=== PATIENT | female | born 1965 | race Caucasian/White ===

== ENCOUNTER 2016-10-17 09:24 | Emergency (ER) | payer BC ==
[2016-10-17 09:38] VITALS: BP 117/74
--- NOTE | 2016-10-17 10:20 | RAD ---
HISTORY: Tender first metacarpal, trauma COMPARISONS: None VIEWS: 4, Frontal, lateral, and oblique views of the left hand FINDINGS: BONE DENSITY: Normal. BONES: There is no displaced fracture. JOINTS: There is moderate to advanced osteoarthritis of the first CMC joint. There is mild osteoarthritis of the interphalangeal joints. ALIGNMENT: There is no dislocation. SOFT TISSUES: Unremarkable. OTHER FINDINGS: None. IMPRESSION: OSTEOARTHRITIS. NO ACUTE OSSEOUS INJURY. IF SYMPTOMS PERSIST, RECOMMEND REPEAT IMAGING.
--- NOTE | 2016-10-17 10:58 | UC ---
Upper Extremity HPI - HPI Summary HPI Summary: PT HAD A TUMBLE WHEN WALKING A LARGE DOG LAST NIGHT AROUND 9PM. NOT SURE EXACTLY WHAT HAPPENED. NO PAIN IMEDIATELY AFTER THE FALL. HOWEVER PT WOKE THIS AM WITH PAIN AND TENDERNESS OVER THE LEFT 1ST METACARPAL AND RADIAL ASPECT OF THE WRIST. - History of Current Complaint Chief Complaint: UCUpperExtremity Stated Complaint: HAND INJURY Time Seen by Provider: 10/17/16 09:48 Hx Obtained From: Patient ?: No Onset/Duration: Sudden Onset, Lasting Hours, Still Present, Worse Since - THIS AM Severity Initially: Moderate Severity Currently: Moderate Pain Intensity: 8 Pain Scale Used: 0-10 Numeric Location Of Pain: Is Discrete @ Character: Sharp, Dull Aggravating Factor(s): Movement, Lifting, Flexion, Extension, Internal/External Rotation Alleviating Factor(s): Rest Associated Signs And Symptoms: Positive: Negative Related History: Dominant Hand Right - Allergies/Home Medications Allergies/Adverse Reactions: Allergies Allergy/AdvReac Type Severity Reaction Status Date / Time Bacitracin [From Neosporin] Allergy Anaphylatic Verified 07/28/15 19:21 Shock Neomycin [From Neosporin] Allergy Anaphylatic Verified 07/28/15 19:21 Shock Polymyxin B [From Neosporin] Allergy Anaphylatic Verified 07/28/15 19:21 Shock TOPICAL ANTIBIOTICS* Allergy Severe Anaphylatic Uncoded 07/28/15 19:21 Shock Home Medications: Home Medications Cholesterol Med 1 tab PO DAILY 10/17/16 [History] PMH/Surg Hx/FS Hx/Imm Hx - Additional Past Medical History Additional PMH: BACK PAIN Other Endocrine History: NEG: DM Other Cardiovascular History: NEG: HTN Psychological History: Anxiety - Surgical History Surgical History: Yes Surgery Procedure, Year, and Place: - Family History Known Family History: Positive: None - Social History Alcohol Use: Occasionally Substance Use Type: Prescribed Smoking Status (MU): Heavy Every Day Tobacco Smoker Type: Cigarettes Amount Used/How Often: 1/2 ppd Length of Time of Smoking/Using Tobacco: 40 years Have You Smoked in the Last Year: Yes Cessation Counseling: Patient Advised to Stop - Immunization History Most Recent Influenza Vaccination: 2014/2015 Most Recent Tetanus Shot: unknown Review of Systems Constitutional: Negative Skin: Negative Eyes: Negative ENT: Negative Respiratory: Negative Cardiovascular: Negative Gastrointestinal: Negative Musculoskeletal: Other: - SEE HPI Neurological: Negative All Other Systems Reviewed And Are Negative: Yes Physical Exam Triage Information Reviewed: Yes Appearance: Well-Appearing, No Pain Distress, Well-Nourished Vital Signs: Initial Vital Signs Temp 98.4 F 10/17/16 09:28 Pulse 83 10/17/16 09:28 Resp 16 10/17/16 09:28 BP 117/74 10/17/16 09:28 Pulse Ox 100 10/17/16 09:28 Vital Signs Reviewed: Yes Eyes: Positive: Conjunctiva Clear. Negative: Discharge ENT: Positive: Hearing grossly normal. Negative: Muffled/hoarse voice Neck: Positive: Supple Respiratory: Positive: Lungs clear, Normal breath sounds, No respiratory distress, No accessory muscle use Cardiovascular: Positive: RRR, No Murmur Musculoskeletal: Positive: ROM Limited @ - FLEX/EXT, GRIPPING, Other: - TENDER TO PALPATION OF 1ST METACARPAL AND SNUFF BOX Neurological: Positive: Alert, Muscle Tone Normal Psychological: Positive: Age Appropriate Behavior Skin Exam: Normal Upper Extremity Course/Dx - Differential Dx/Diagnosis Differential Diagnosis/HQI/PQRI: Arthritis, Contusion, Fracture (Closed), Strain , Sprain Provider Diagnoses: THUMB SPRAIN, R/O SCAPHOID FX Discharge - Discharge Plan Condition: Stable Disposition: HOME Patient Education Materials: Suspected Fracture (ED), Wrist Sprain (ED), Splint Care (ED) Referrals: Pranav Ashby MD [Medical Doctor] - (FOLLOW UP IN 5-7 DAYS OR PER ORTHO) Birgit Hurley NP [Primary Care Provider] - If Needed Additional Instructions: Your history and exam is suspicous for possible occult fracture of the scaphoid bone. This is a fracture that can have a bad outcome if not properly immobilized. So, we will treat this as a fracture until proven otherwise. That means that you must wear the splint 24 hours a day until the ortho provider tells you otherwise. It will take 5-7 days to establish whether or not your bone is fractured.
== END 2016-10-17 10:40 | disposition home or self-care (01) ==
LOC: UCEAST 09:24
DX: S63.682A Other sprain of left thumb, initial encounter (principal); M18.12 Unilateral primary osteoarthritis of first carpometacarpal joint, left hand; W18.30XA Fall on same level, unspecified, initial encounter; Y92.9 Unspecified place or not applicable; F17.210 Nicotine dependence, cigarettes, uncomplicated; Z88.1 Allergy status to other antibiotic agents
CPT/HCPCS: 99212; G0463

== ENCOUNTER 2018-04-12 12:06 | Day surgery (SDC) | payer BC ==
[~2018-04-12 12:06] MED LIST: Buffered Lidocaine 1% SYRIN* 1 ML/SYRINGE INTRADERM ONE; Lactated Ringers 1000 ML Bag* 1,000 ML IV SCH; Sodium Citrate/Citric Acid* 15 ML UDC PO ONE
[2018-04-12] MEDS ORDERED: ROPIVACAINE 5 MG/ML 30 ML BTL (0.5%) ONE (12:31)
[2018-04-12] MEDS ORDERED: ceFAZolin 2 GM PREMIX in ORs 2 GM/50 ML BAG IVPB ONE (12:35)
[2018-04-12] MEDS ORDERED: Sodium Citrate/Citric Acid* 15 ML UDC ONE (12:35)
[2018-04-12] MEDS ORDERED: Midazolam* 1 MG/ML 2 ML VIAL (2 MG) ONE (13:19)
[2018-04-12] MEDS ORDERED: fentaNYL* 50 MCG/ML 2 ML VIAL (100 MCG VIAL) ONE ×4 (13:19→15:30)
[2018-04-12] MEDS ORDERED: Lidocaine 2% PF * 5 ML VIAL ONE (13:46)
[2018-04-12] MEDS ORDERED: Propofol* 10 MG/ML 20 ML BTL ONE (13:46)
[2018-04-12] MEDS ORDERED: Ketorolac INJ* 30 MG/ML 1 ML VIAL ONE (14:14)
[2018-04-12] MEDS ORDERED: Dexamethasone IV* 4 MG/ML 1 ML (4 MG) ONE (14:14)
[2018-04-12] MEDS ORDERED: Naloxone* 0.4 MG/ML 1 ML VIAL IV PRN (14:37)
[2018-04-12] MEDS ORDERED: Ondansetron INJ* 2 MG/ML VIAL IV PRN (14:37)
[2018-04-12] MEDS ORDERED: HYDROcodone/ACETAMIN 5-325 MG* 1 TAB ONE (15:21)
[2018-04-12] MEDS: fentaNYL* 50 MCG/ML 2 ML VIAL (100 MCG VIAL) IV PRN ×4 (15:23→16:12)
[2018-04-12 16:45] VITALS: BP 136/82
--- NOTE | 2018-04-12 21:13 | OP ---
DATE OF OPERATION: 04/12/18 - [facility] DATE OF : 65 SURGEON: Keith Boswell MD DIRECTOR [facility] NURSING: RICK Mata. An visitor services information assistant was needed for the procedure to aid in positioning of the arm and retraction. ANESTHESIOLOGIST: Dr. Nunes. ANESTHESIA: General. PRE-OP DIAGNOSIS: Left stage III basal joint arthritis. POST-OP DIAGNOSES: Left stage III basal joint arthritis. OPERATIVE PROCEDURE: 1. Left thumb carpometacarpal arthroplasty with trapeziectomy. 2. Distally based flexor carpi radialis tendon transfer for thumb suspension and tendon interposition. INDICATIONS: Mae has the aforementioned basal joint arthritis. We talked about nonoperative treatments as well as the risks and benefits of the surgery and expected recovery with surgery. She had wanted to proceed with surgical intervention. ESTIMATED BLOOD LOSS: 5 mL. COMPLICATIONS: None. FINDINGS: See above and below. DESCRIPTION OF PROCEDURE: Mae was seen in the preoperative holding area. The correct site, side, and procedure were identified. We came back to the operating room where the arm was prepped and draped in the usual fashion and a time-out was performed. The arm was exsanguinated with the Esmarch and the tourniquet was inflated to 250 mmHg. I made a 2 to 3 cm incision over the dorsoradial thumb base over the CMC joint. Dissection was carried down. The traversing sensory nerves were preserved. The radial artery was mobilized and retracted. A subperiosteal and capsular flaps were raised off the trapezium. I then placed a Steinmann pin in the trapezium and used the McGlamry elevator to excise the trapezium en bloc. This was handed off as a specimen, it was noted to be frankly arthritic at the CMC joint. The FCR tendon was preserved in the base of the wound. The scaphotrapezoid joint was then inspected and looked healthy. I then made a bone tunnel from the dorsoradial aspect of the thumb metacarpal base extending out the volar ulnar articular surface near the insertion of the FCR tendon. The wound was irrigated out and we turned our attention to the tendon transfer. I made a 1-cm transverse incision just proximal to the wrist flexion crease. The tendon sheath was opened up and the FCR tendon was delivered out of the wound and split longitudinally with a 15 blade and a 26-gauge wire was passed into the tendon split. I then made 2 more transverse incisions, each about 7 cm proximal to the last. The sheath was released along the entirety of the FCR tendon. I then passed a Hilaria clamp from the middle wound into the distal wound and pulled the wire into the middle wound and then I did the same thing pulling the wire into the proximal wound and releasing half the tendon at the musculotendinous junction. The muscular remnants were cleaned off the end of the tendon and the end of the tendon was secured with 3-0 Ethibond suture to prevent splitting and fraying. The two 26-gauge wires were then used to shuttle the free end of the tendon down into the thumb base wound. The tendon split was completed all the way to the base of the second metacarpal. I then passed the free end of the tendon through the bone tunnel back around the intact limb of the FCR tendon and maximum tension was set as the tendon transfer was secured with three [id number] 3-0 Ethibond sutures. The first sewing all 3 limbs of the tendon transfer together, the second two sewing intact limb to intact limb. The remainder of the tendon tail was rolled up as a ball and secured with a 3-0 Ethibond suture and this was docked as an interposition between the base of the thumb and the distal pole of the scaphoid. The thumb was nicely suspended. The wound was irrigated out. The capsule was closed with 3-0 Vicryl suture. The skin was closed with 4-0 nylon suture. A 0.5% ropivacaine was infiltrated out on the operative area. The wounds were dressed with Xeroform, 4x4s, sterile Webril and then a thumb spica splint with DIP joint free was applied. Tourniquet was deflated and the hand pinked up immediately. She was then taken to the recovery room in stable condition. [id number]/[facility] #: [id number] LORRAINE
== END 2018-04-12 16:44 | disposition home or self-care (01) ==
LOC: OR 12:06
PROVIDERS: ATTEND Orthopaedic Surgery Hand Surgery
DX: M18.12 Unilateral primary osteoarthritis of first carpometacarpal joint, left hand (principal); F41.8 Other specified anxiety disorders; Z87.891 Personal history of nicotine dependence; E78.5 Hyperlipidemia, unspecified; M19.90 Unspecified osteoarthritis, unspecified site
CPT/HCPCS: 88304; 88311; A9270-GY; C1776; J0690; J1100; J1885; J2250; J2704; J2795; J3010

== ENCOUNTER 2018-08-17 07:02 | Emergency (ER) | payer BC ==
--- OUTSIDE RECORDS SUMMARY | 2018-08-17 07:09 | XMS REPORT | Continuity of Care Document ---
:1965 External Reference #:[id number] Author Name Mark Diezbryanlauratim Care Team Providers Name Role Phone Mehdi Ramirez MD Primary Care Physician Unavailable Payers Date Identification Numbers Payment Provider Subscriber Policy Number: [id number] Tami Esposito PayID: [id number] [address] [address] [place] [address] Effective: 2013 Policy Number: [id number] Tami Esposito Expires: 2018 PayID: [id number] [address] [address] [place] [address] Problems Description No Active Problems Family History Date Family Member(s) Observation Comments General Cancer General No Current Problems General Thyroid Disease General Diabetes Father due to Suicide () Mother Non hodkins lymphoma Mother Diabetes Mother hashimotos Mother Breast Cancer Siblings 3 sister-thyroid disease Social History Type Date Description Comments Sex Unknown Marital Status Lives With Alone Lives With Alone Occupation [employer] Occupation [employer] Tobacco Use Start: Unknown Light tobacco smoker (10 or fewer cigarettes/day) ETOH Use Drinks 1 Alcoholic Beverage Per Day ETOH Use Drinks 1 Alcoholic Beverage Per Day Recreational Drug Use Denies Drug Use Tobacco Use Start: Unknown End: Patient is a former smoker Unknown Tobacco Use Start: Unknown End: Patient is a former smoker Unknown Smoking Status Reviewed: 07/27/18 Patient is a former smoker Exercise Type/Frequency Exercises rarely Exercise Type/Frequency Does not exercise Allergies, Adverse Reactions, Alerts Active Allergies Reaction Severity Comments Date Topical Antibiotics blister, puss 04/27/2014 Topical Antibiotics 05/18/2018 Levaquin myalgia 03/18/2015 Medications Active Medications SIG Qnty Indications Ordering Provider Date Mobic 1 tab by mouth 30tabs Cecilia Jude, 01/04/2018 15mg Tablets every day M.D. Aspirin Low Strength 1 by mouth every Qutaybeh S. 05/16/2014 81mg day Frantz Riojas Chewtabs Flexeril as needed Unknown Xanax by mouth three Unknown 0.5mg Tablets times a day as needed Valacyclovir Unknown Percocet 1 - 2 tabs by Unknown 5-325mg Tablets mouth every 4 - 6 hours as needed for pain. Valacyclovir HCL 1 by mouth every Unknown 500mg day Tablets History Medications Joiner 1 by mouth 30tabs Keith Boswell, 04/12/2018 - 5-325mg Tablets every 6 hours 04/20/2018 as needed Bactrim DS 1 tablet by 30tabs Iveth 03/18/2015 - 800-160mg mouth twice a JOHN Montoya 12/30/2017 Tablets day Levofloxacin 1 by mouth 30tabs S91.332A Keith Freedman, 03/16/2015 - 500mg every day M.D. 03/18/2015 Tablets Flagyl one tab twice 30tabs S91.332A Keith Freedman, 03/16/2015 - 500mg Tablets day M.D. 03/30/2018 Percocet as needed Unknown - 12/30/2017 Medications Administered in Office Medication SIG Qnty Indications Ordering Provider Date Technetium TC 99M Silvio Brandyn Cancino M.D., 05/11/2014 Tetrofosmin, Per Unit Dose [facility] [place] Up To 40 Millicuries Injection Technetium TC 99M Arsh Riojas, 05/11/2014 Tetrofosmin, Per Unit Dose M.D. Up To 40 Millicuries Injection Vital Signs Date Vital Result Comment 07/27/2018 8:00am Height 66.5 inches 5'6.50" Heart Rate 78 /min BP Systolic 112 mmHg BP Diastolic 70 mmHg Respiratory Rate 18 /min Body Temperature 98.1 F Pain Level 3 05/18/2018 8:43am Height 66.5 inches 5'6.50" Weight 165.00 lb Heart Rate 82 /min BP Systolic 118 mmHg BP Diastolic 82 mmHg Respiratory Rate 18 /min Body Temperature 97.6 F Pain Level 3 BMI (Body Mass Index) 26.2 kg/m2 04/20/2018 11:25am Height 66 inches 5'6" Weight 170.00 lb BP Systolic 120 mmHg BP Diastolic 80 mmHg Body Temperature 97.8 F Pain Level 3 BMI (Body Mass Index) 27.4 kg/m2 03/31/2018 8:55am Height 66 inches 5'6" Weight 170.00 lb Heart Rate 88 /min BP Systolic 122 mmHg BP Diastolic 78 mmHg Respiratory Rate 18 /min Body Temperature 97.4 F Pain Level 8 BMI (Body Mass Index) 27.4 kg/m2 12/31/2017 11:05am Height 66 inches 5'6" Weight 170.00 lb BP Systolic 122 mmHg BP Diastolic 84 mmHg Respiratory Rate 16 /min Body Temperature 97.2 F Pain Level 2 BMI (Body Mass Index) 27.4 kg/m2 03/27/2015 1:29pm Height 66 inches 5'6" Weight 175.00 lb Pain Level 0 BMI (Body Mass Index) 28.2 kg/m2 03/16/2015 10:23am Height 66 inches 5'6" Weight 175.00 lb Heart Rate 78 /min BP Systolic Sitting 131 mmHg BP Diastolic Sitting 81 mmHg Respiratory Rate 16 /min BMI (Body Mass Index) 28.2 kg/m2 06/01/2014 4:16pm Height 66 inches 5'6" Weight 178.50 lb w/ shoes Heart Rate 77 /min BP Systolic Sitting 118 mmHg Ra, reg cuff BP Diastolic Sitting 80 mmHg Ra, reg cuff BMI (Body Mass Index) 28.8 kg/m2 05/18/2014 3:33pm Height 66 inches 5'6" Weight 174.19 lb Heart Rate 60 /min BP Systolic 120 mmHg LA reg BP Diastolic 78 mmHg LA reg BMI (Body Mass Index) 28.1 kg/m2 Results Test Date Facility Test Result H/L Range Note Laboratory test 04/12/2018 [facility] Surgical SEE RESULT [address] [place] [address] [phone] Cath Panel 05/22/2014 [facility] Activated 31.5 seconds N 26.0 -36.[address] [place] [address] Thrombo Time [phone] CBC Auto Diff 05/22/2014 [facility] White Blood 6.7 10^3/uL N 4.8-10.[address] Count [place], [place] [id number] [phone] Red Blood Count 4.41 10^6/uL N 4.0-5.4 Hemoglobin 14.2 g/dL N 12.0-16.0 Hematocrit 42 % N 35-47 Mean Corpuscular Volume 95 fL N 80-97 Mean Corpuscular Hemoglobin 32 pg High 27-31 Mean Corpuscular HGB Conc 34 g/dL N 31-36 Red Cell Distribution Width 14 % N 10.5-15 Platelet Count 284 10^3/uL N 150-450 Mean Platelet Volume 8 um3 N 7.4-10.4 Abs Neutrophils 3.5 10^3/uL N 1.5-7.7 Abs Lymphocytes 2.5 10^3/uL N 1.0-4.8 Abs Monocytes 0.5 10^3/uL N 0-0.8 Abs Eosinophils 0.1 10^3/uL N 0-0.6 Abs Basophils 0 10^3/uL N 0-0.2 Abs Nucleated RBC 0 10^3/uL N Granulocyte % 52.3 % N 38-83 Lymphocyte % 37.8 % N 25-47 Monocyte % 7.6 % N 1-9 Eosinophil % 1.8 % N 0-6 Basophil % 0.5 % N 0-2 Nucleated Red Blood Cells % 0 N Basic Metabolic Panel 05/22/2014 [facility] Sodium 136 mmol/L N 133-145 [address] [place] [address] [phone] Potassium 3.9 mmol/L N 3.5-5.0 Chloride 104 mmol/L N 101-111 Co2 Carbon Dioxide 28 mmol/L N 22-32 Anion Gap 4 mmol/L N 2-11 Glucose 90 mg/dL N 70-100 Blood Urea Nitrogen 19 mg/dL N 6-24 Creatinine 0.70 mg/dL N 0.51-0.95 BUN/Creatinine Ratio 27.1 High 8-20 Calcium 9.1 mg/dL N 8.6-10.3 Egfr Non- 89.3 N >60 Egfr 114.9 N >60 2 Inr/Protime 05/22/2014 [facility] Inr 0.88 N 0.78-1.[address] [place] [address] [phone] Order 05/09/2014 [facility] Echocardiogram <pending> [address] [place] [address] [phone] 1 SEE RESULT BELOW Name: MARION ESPOSITO : [address]: Keith Boswell MD Acct: [id number] Unit: [id number] AGE: 52 Location: OR Re04/12/18 SEX: F Status: CAMMY GARCIA SPEC: [id number] TORIE: 04/12/18-[address] [facility] [address]: Keith Boswell MD REQ: [id number] RECD: 04/12/18 STATUS: SOUT _ ORDERED: Mirlande, LEVEL 3 FINAL DIAGNOSIS Trapezium, left, excision: -- Benign bone and cartilage with degenerative change. PRE-OPERATIVE DIAGNOSIS Left thumb carpometacarpal arthroplasty GROSS DESCRIPTION The specimen is received in formalin labeled, Trapezium Left, and consists of a 2.5 x 1.6 by up to 1.6 cm yellow-pink irregular smooth to shaggy and focally nodular bone fragment. Cardiac Nurse Specialist sections, one cassette following decalcification. Signed by and Reported on: Iveth Chung MD 04/16/18 1510 END OF REPORT DEPARTMENT OF PATHOLOGY, [address] [place] [address] Michael Barr M.D. Director [facility] # [id number] 2 Because ethnic data is not always readily available, this report includes an eGFR for both -Americans and non- Americans. The National Kidney Disease Education Program (NKDEP) does not endorse the use of the MDRD equation for patients that are not between the ages of 18 and 70, are , have extremes of body size, muscle mass, or nutritional status, or are non- or non-. According to the National Kidney Foundation, irrespective of diagnosis, the stage of the disease is based on the level of kidney function: Stage Description GFR(mL/min/1.73 m(2)) 1 Kidney damage with normal or decreased GFR 90 2 Kidney damage with mild decrease in GFR 60-89 3 Moderate decrease in GFR 30-59 4 Severe decrease in GFR 15-29 5 Kidney failure <15 (or dialysis) Procedures Date Code Description Status 04/20/2018 20518 Short Arm Splint Application Completed 04/12/2018 31320 Tendon Transfer CMC/Hand W/O Free Graft Completed 04/12/2018 67568 Tendon Transfer CMC/Hand W/O Free Graft Completed 04/12/2018 64245 Arthroplasty Interposition Intercarpal Or Carpometacarpal Completed JTS 04/12/2018 01444 Arthroplasty Interposition Intercarpal Or Carpometacarpal Completed JTS 05/25/2014 73477 Left Heart Cath. Incl S/I Coronaries, Angio S/I V Gram If Completed Done 05/17/2014 76131 Holter Monitor Review (24 hr)dr review & interp only Completed 05/17/2014 90934 ECG Monitor/Recording W/Visual Superimposition Scanning Completed 05/11/2014 02838 Treadmill Interp/Report Only Completed 05/11/2014 58905 Stress Test Supervsn W/Out I/R Completed 05/11/2014 69349 Stress Test Completed 05/11/2014 90290 Myocardial Perfusion Imaging Tomographic (Spect) Multiple Completed Studies 05/11/2014 24735 Myocardial Perfusion Imaging Tomographic (Spect) Multiple Completed Studies 05/09/2014 29646 ECHO Transthoracic, Real-Time 2D With Doppler And Color Completed Flow 04/24/2014 07894 ECHO Stress Test Incl Perf Contiuous ekg Monitoring W/Phys Completed Superv Encounters Type Date Location Provider Dx Diagnosis Office Visit 03/31/2018 Orthopedic Keith Boswell M18.12 Unil primary 8:45a Services Of osteoarth of first C.M.A. carpometacarp joint, l hand Office Visit 12/31/2017 Orthopedic Yara Hayward M18.12 Unil primary 11:15a Services Of XI osteoarth of first C.M.A. carpometacarp joint, l hand Office Visit 03/27/2015 Orthopedic Keith Freedman S91.332D Puncture wound 1:30p Services Of M.D. without foreign C.M.A. body, left foot, subs encntr Office Visit 03/16/2015 Orthopedic Keith Freedman, S91.332A Puncture wound 10:00a Services Of M.D. without foreign C.M.A. body, left foot, init encntr Office Visit 06/01/2014 [facility] Qutaybeh S. 427.69 Premature Beats 4:40p Frantz Riojas Other 278.00 Obesity Unspec 785.1 Palpitations 272.2 Hyperlipidemia Mixed Office Visit 05/18/2014 3:40p [facility] Qutaybeh S. 785.1 Palpitations Frantz Riojas 780.4 Dizziness & Giddiness 786.50 Pain Chest Unspec 786.05 Shortness Of Breath 424.0 Mitral Valve Disorder 427.69 Premature Beats Other 441.9 Aneurysm Aortic W/O Rupture Unspec Site Office Visit 04/24/2014 8:30a Mikel Caban S. 785.0 Tachycardia Cardiology Frantz Riojas Unspec 786.05 Shortness Of Breath 780.4 Dizziness & Giddiness 786.50 Pain Chest Unspec 785.1 Palpitations 427.69 Premature Beats Other Plan of Treatment Future Appointment(s):10/27/2018 8:00 am - Keith Boswell MD at [facility].07/27/2018 - Keith Boswell, MDM18.12 Unilateral primary osteoarthritis of first carpometacarpal jFollow up:Follow up: 3 months
[2018-08-17 07:15] VITALS: BP 90/59
--- NOTE | 2018-08-17 07:25 | UC ---
Throat Pain/Nasal Rocael HPI - HPI Summary HPI Summary: Patient presented to urgent care reporting 36 hours of progressive body aches, sore throat, head congestion fatigue. Patient states she felt warm yesterday but did not take her temperature. Patient states she slept most the day. Patient reports painful swallowing. Patient denies rashes. No nausea vomiting. No diarrhea. Patient states she's got a history of recurrent lyme but states this feels different because sore throat. Patient did not take any analgesia, antipyretic. Patient is decongestants. 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 Patient is not inial compromise. Medications reviewed. Patient not . - History of Current Complaint Chief Complaint: UCGeneralIllness Stated Complaint: SORE THROAT/EAR PAIN Time Seen by Provider: 08/17/18 07:19 Hx Obtained From: Patient Pain Intensity: 7 - Allergies/Home Medications Allergies/Adverse Reactions: Allergies Allergy/AdvReac Type Severity Reaction Status Date / Time bacitracin Allergy Anaphylatic Verified 08/17/18 07:15 [From Neosporin Shock ([id number])] neomycin Allergy Anaphylatic Verified 08/17/18 07:15 [From Neosporin Shock ([id number])] polymyxin B Allergy Anaphylatic Verified 08/17/18 07:15 [From Neosporin Shock ([id number]-[id number])] levofloxacin [From Levaquin] AdvReac Muscle Ache Verified 08/17/18 07:15 TOPICAL ANTIBIOTICS* Allergy Severe Anaphylatic Uncoded 08/17/18 07:15 Shock PMH/Surg Hx/FS Hx/Imm Hx Previously Healthy: Yes - Surgical History Surgical History: Yes Surgery Procedure, Year, and Place: , 1993. TUBAL , 1993 - Family History Known Family History: Positive: Non-Contributory - Social History Occupation: Employed Full-time - post office clerk Lives: With Family Alcohol Use: None Alcohol Amount: 1 Substance Use Type: None Smoking Status (MU): Former Smoker Type: Cigarettes Amount Used/How Often: pack a day for 30 yrs Length of Time of Smoking/Using Tobacco: 40 years Have You Smoked in the Last Year: Yes When Did the Patient Quit Smoking/Using Tobacco: 2017 - Immunization History Most Recent Influenza Vaccination: 2014/2015 Most Recent Tetanus Shot: unknown Review of Systems All Other Systems Reviewed And Are Negative: Yes Constitutional: Positive: Fatigue Skin: Positive: Negative Eyes: Positive: Negative ENT: Positive: Sore Throat, Nasal Discharge, Sinus Congestion Respiratory: Positive: Negative Cardiovascular: Positive: Negative Gastrointestinal: Positive: Negative Genitourinary: Positive: Negative Musculoskeletal: Positive: Myalgia Is Patient Immunocompromised?: No Physical Exam - Summary Physical Exam Summary: Vital Signs Reviewed: Yes A+Ox3, no distress, tired appearing Eyes: Conjunctiva Clear, BALAJI. EOM intact and full ENT: Hearing grossly normal TM x 2 clear, sinus, congestion, + PND, mmoist, + erythema + mild exudate, uvula midline Neck: Positive: Supple, + submandibular LA L>R Respiratory: Positive: No respiratory distress, No accessory muscle use + CTA throughout no w/r Cardiovascular: RRR nl s1, s2 no m/r CBT <2 sec abd soft + BS nt/nd no guarding, no distension Musculoskeletal Exam: FATIMA x 4 without difficulty Strength Intact, ROM Intact Neurological: Positive: Alert, + sensation throughout Psychological: Positive: Normal Response To plate shear operator Skin: Positive: no rash, no ecchymosis Triage Information Reviewed: Yes Vital Signs: Initial Vital Signs Temp 98.9 F 08/17/18 07:09 Pulse 96 08/17/18 07:09 Resp 18 08/17/18 07:09 BP 90/59 08/17/18 07:09 Pulse Ox 97 08/17/18 07:09 Throat Pain/Nasal Course/Dx - Course Course Of Treatment: Patient presents to urgent care with 36 hours of fatigue, body aches, sore throat, and congestion. On exam vital signs are stable. Patient is tired appearing has erythema to her oral pharynx mild exudate uvula is midline. No difficulty with secretions. Rapid strep is positive. Will start antibiotics. Gargle spit warm salt water. Prednisone. Motrin Tylenol. Rest. Secretion precaution. Return precaution. Patient comfortable in agreement with plan. - Differential Dx/Diagnosis Provider Diagnosis: Strep pharyngitis Discharge - Sign-Out/Discharge Documenting (check all that apply): Patient Departure All imaging exams completed and their final reports reviewed: No Studies - Discharge Plan Condition: Stable Disposition: HOME Prescriptions: Amoxicillin/Clavulanate TAB* [Augmentin TAB 875*] 875 mg PO BID #14 tab predniSONE TAB* [Deltasone TAB*] 50 mg PO DAILY #5 tab Patient Education Materials: Strep Throat (ED) Referrals: Birgit Hurley, AERODYNAMICIST [Primary Care Provider] - Additional Instructions: - Okay to alternate ibuprofen (Advil, Motrin) 600mg and [id number] every 3 hours for pain. Take with food. Do NOT take for more than 4-5 days - Take prednisone daily as prescribed - Okay to gargle and spit warm salt water every 4 hours as needed for pain - Stay well hydrated - frequent sips of cold fluids will be soothing to your throat (popsicles, jello, ice cream, ice water). Avoid excess caffeine until your symptoms have resolved. -Throat infections are spread by oral secretions - do not share eating or drinking utensils until you symptoms are resolved. Clean items that may get your secretions such as cell phones, ipads, computer mouse, television remotes. Once you start to feel better, change your toothbrush and your pillowcase. - humidify the air in the room where you sleep - boil water, run a hot steam shower, vaporizer, cups of water by heat register - Contact your doctor to arrange a follow-up appointment as needed - Billing Disposition and Condition Condition: STABLE Disposition: Home
== END 2018-08-17 07:35 | disposition home or self-care (01) ==
LOC: UCEAST 07:02
DX: J02.0 Streptococcal pharyngitis (principal); Z87.891 Personal history of nicotine dependence
CPT/HCPCS: 87651; 99211; G0463

== ENCOUNTER 2018-12-14 08:05 | Emergency (ER) | payer BC ==
--- NOTE | 2018-12-14 08:36 | ED ---
Lower Extremity - HPI Summary HPI Summary: Patient is a 53-year-old female who presents emergency department for a right knee injury that occurred 3 days ago. Patient states she slid going down the steps and twisted her right knee on Thursday. No other injuries were sustained. Denies numbness or tingling. Pain is worse with ambulation and putting pressure on the medial aspect of the knee. Symptoms are mild in severity. - History of Current Complaint Chief Complaint: EDExtremityLower Stated Complaint: RT KNEE INJ PER PT Time Seen by Provider: 12/14/18 08:34 Hx Obtained From: Patient Pain Intensity: 5 - Allergies/Home Medications Allergies/Adverse Reactions: Allergies Allergy/AdvReac Type Severity Reaction Status Date / Time bacitracin Allergy Anaphylatic Verified 08/17/18 07:15 [From Neosporin Shock ([id number]-[id number])] neomycin Allergy Anaphylatic Verified 08/17/18 07:15 [From Neosporin Shock (koa-raf-qkaic)] polymyxin B Allergy Anaphylatic Verified 08/17/18 07:15 [From Neosporin Shock (xke-dqk-eunuc)] levofloxacin [From Levaquin] AdvReac Muscle Ache Verified 08/17/18 07:15 TOPICAL ANTIBIOTICS* Allergy Severe Anaphylatic Uncoded 08/17/18 07:15 Shock Home Medications: Home Medications Hydrochlorothiazide TAB* [Hydrodiuril TAB*] 25 mg PO DAILY 12/14/18 [History Confirmed 12/14/18] PMH/Surg Hx/FS Hx/Imm Hx Previously Healthy: Yes Endocrine/Hematology History: Denies: Hx Diabetes, Hx Thyroid Disease Cardiovascular History: Denies: Hx Hypertension, Hx Pacemaker/ICD Respiratory History: Denies: Hx Asthma, Hx Chronic Obstructive Pulmonary Disease (COPD) GI History: Denies: Hx Ulcer History: Denies: Hx Renal Disease Musculoskeletal History: Reports: Hx Arthritis - all over Sensory History: Reports: Hx Contacts or Glasses - readers Denies: Hx Hearing Aid Opthamlomology History: Reports: Hx Contacts or Glasses - readers Neurological History: Reports: Other Neuro Impairments/Disorders - bells palsy, lyme disease Psychiatric History: Denies: Hx Panic Disorder - Surgical History Surgery Procedure, Year, and Place: , 1993. TUBAL , 1993 Hx Anesthesia Reactions: No Infectious Disease History: No Infectious Disease History: Denies: Hx Hepatitis, Hx Human Immunodeficiency Virus (HIV), History Other Infectious Disease, Traveled Outside the [place] in Last 30 Days - Family History Known Family History: Positive: None, Non-Contributory - Social History Occupation: Employed Full-time Lives: With Family Alcohol Use: None Alcohol Amount: 1 Substance Use Type: Reports: None Smoking Status (MU): Former Smoker Type: Cigarettes Amount Used/How Often: pack a day for 30 yrs Length of Time of Smoking/Using Tobacco: 40 years Have You Smoked in the Last Year: Yes Review of Systems Positive: Other - right knee pain Skin: Negative Neurological: Negative Negative: Weakness, Paresthesia, Numbness All Other Systems Reviewed And Are Negative: Yes Physical Exam Triage Information Reviewed: Yes Vital Signs On Initial Exam: Initial Vitals Temp Pulse Resp BP Pulse Ox 98.6 F 80 18 136/89 98 12/14/18 08:10 12/14/18 08:10 12/14/18 08:10 12/14/18 08:10 12/14/18 08:10 Vital Signs Reviewed: Yes Appearance: Positive: Well-Appearing - Patient lying in bed in no acute distress. Skin: Positive: Warm, Dry Head/Face: Positive: Normal Head/Face Inspection Eyes: Positive: Normal, EOMI Neck: Positive: Supple Musculoskeletal: Positive: Other - Good pedal pulse on the right. No calf tenderness. Medial right knee tenderness. Full ROM with pain with flexion. Able to lift leg off of bed. No proximal or distal injuries. Neurological: Positive: Normal, CN Intact II-III Psychiatric: Positive: Affect/Mood Appropriate Procedures - Sedation Patient Received Moderate/Deep Sedation with Procedure: No Diagnostics - Vital Signs Vital Signs Temp Pulse Resp BP Pulse Ox 12/14/18 08:10 98.6 F 80 18 136/89 98 - Laboratory Lab Statement: Any lab studies that have been ordered have been reviewed, and results considered in the medical decision making process. Lower Extremity Course/Dx - Course Course Of Treatment: Pt. with isolated knee injury. Xray negative for acute findings per radiology. Suspect sprain. Michael wrap placed. Advised rest, ice/ elevatin, NSAIDs. To f.u with pcp or ortho if pain persist for further evaluation. pt. understands and agrees with plan. - Diagnoses Differential Diagnosis/HQI/PQRI: Positive: Contusion, Dislocation, Fracture ( Closed), Sprain, Strain Provider Diagnoses: Knee sprain Discharge ED - Sign-Out/Discharge Documenting (check all that apply): Patient Departure - Discharge Plan Condition: Good Disposition: HOME Patient Education Materials: Knee Sprain (ED) Referrals: Jason Langston MD [Medical Doctor] - Birgit Hurley NP [Primary Care Provider] - Additional Instructions: Schedule a follow up appointment with orthopedics for further evaluation if pain persist Ice and elevate intermittently Ibuprofen for pain as directed Activity as tolerated Return to ER if symptoms change or worsen - Billing Disposition and Condition Condition: GOOD Disposition: Home
[2018-12-14 10:02] VITALS: BP 119/78
== END 2018-12-14 09:53 | disposition home or self-care (01) ==
LOC: ED 08:05
DX: S83.91XA Sprain of unspecified site of right knee, initial encounter (principal); W18.49XA Other slipping, tripping and stumbling without falling, initial encounter; Y92.9 Unspecified place or not applicable; Z87.891 Personal history of nicotine dependence; Z79.899 Other long term (current) drug therapy; Z88.1 Allergy status to other antibiotic agents; Z88.8 Allergy status to other drugs, medicaments and biological substances
CPT/HCPCS: 99282

== ENCOUNTER 2019-01-22 14:03 | Emergency (ER) | payer BC ==
--- OUTSIDE RECORDS SUMMARY | 2019-01-22 14:14 | XMS REPORT | Continuity of Care Document ---
:1965 External Reference #:[id number] Author Name Patric Mccann MD (transmitted by agent of provider Justin Diez) Address [address] [place] [id number] Care Team Providers Name Role Phone Mehdi Ramirez MD - Family Care Team Information Buffer Machine [phone] Medicine Birgit Hurley NP - Nurse Care Team Information Buffer Machine [phone] Practitioner Problems Description No Active Problems Social History Type Date Description Comments Sex Unknown Tobacco Use Start: Unknown Light tobacco smoker (10 or fewer cigarettes/day) ETOH Use Drinks 1 Alcoholic Beverage Per Day ETOH Use Drinks 1 Alcoholic Beverage Per Day Recreational Drug Use Denies Drug Use Tobacco Use Start: Unknown End: Patient is a former smoker Unknown Tobacco Use Start: Unknown End: Patient is a former smoker Unknown Smoking Status Reviewed: 12/20/18 Patient is a former smoker Exercise Type/Frequency Exercises rarely Exercise Type/Frequency Does not exercise Allergies, Adverse Reactions, Alerts Active Allergies Reaction Severity Comments Date Topical Antibiotics blister, puss 04/27/2014 Topical Antibiotics 05/18/2018 Levaquin myalgia 03/18/2015 Medications Active Medications SIG Qnty Indications Ordering Provider Date Mobic 1 tab by mouth 30tabs Cecilia Roque, 01/04/2018 15mg Tablets every day M.DTy Aspirin Low Strength 1 by mouth every Qutaybeh S. 05/16/2014 81mg day Frantz Riojas Chewtabs Flexeril as needed Unknown Xanax by mouth three Unknown 0.5mg Tablets times a day as needed Valacyclovir Unknown Percocet 1 - 2 tabs by Unknown 5-325mg Tablets mouth every 4 - 6 hours as needed for pain. Valacyclovir HCL 1 by mouth every Unknown 500mg day Tablets Medications Administered in Office Medication SIG Qnty Indications Ordering Provider Date Technetium TC 99M Silvio Brandyn Cancino M.D., 05/11/2014 Tetrofosmin, Per Unit Dose FAC, FASNE Up To 40 Millicuries Injection Technetium TC 99M Arsh Riojas, 05/11/2014 Tetrofosmin, Per Unit Dose M.DTy Up To 40 Millicuries Injection Immunizations Description No Information Available Vital Signs Date Vital Result Comment 12/20/2018 1:07pm Height 66.5 inches 5'6.50" Weight 168.50 lb Heart Rate 78 /min BP Systolic 110 mmHg BP Diastolic 68 mmHg Respiratory Rate 12 /min Pain Level 3 BMI (Body Mass Index) 26.8 kg/m2 07/27/2018 8:00am Height 66.5 inches 5'6.50" Heart Rate 78 /min BP Systolic 112 mmHg BP Diastolic 70 mmHg Respiratory Rate 18 /min Body Temperature 98.1 F Pain Level 3 Results Description No Information Available Procedures Description No Information Available Medical Devices Description No Information Available Encounters Type Date Location Provider Dx Diagnosis Office Visit 07/27/2018 [facility] Keith Boswell, M18.12 Unil primary 8:00a at [place] osteoarth of first carpometacarp joint, l hand Assessments Date Code Description Provider 07/27/2018 M18.12 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
--- NOTE | 2019-01-22 15:25 | ED ---
Upper Extremity Pain - HPI Summary HPI Summary: This patient is a 53 year old F presenting to [facility] with a chief complaint of right shoulder and forearm pain since 1100 today 01/22/19. Symptoms aggravated by nothing. Symptoms alleviated by nothing. Patient reports she went down icy stairs and fell on right shoulder and right forearm pain. Pt reports range of motion in right arm is limited due to pain. - History of Current Complaint Chief Complaint: EDExtremityUpper Stated Complaint: RT ARM/SHOULDER INJURY PER PT Time Seen by Provider: 01/22/19 14:46 Hx Obtained From: Patient Mechanism Of Injury: Fall From Height Of: Onset/Duration: Started Hours Ago, Still Present Timing: Constant Pain Location: Shoulder, Forearm Aggravating Factor(s): Nothing Alleviating Factor(s): Nothing - Allergies/Home Medications Allergies/Adverse Reactions: Allergies Allergy/AdvReac Type Severity Reaction Status Date / Time bacitracin Allergy Anaphylatic Verified 01/22/19 14:08 [From Neosporin Shock ([id number])] neomycin Allergy Anaphylatic Verified 01/22/19 14:08 [From Neosporin Shock (ghn-hss-lqarl)] polymyxin B Allergy Anaphylatic Verified 01/22/19 14:08 [From Neosporin Shock (euk-oov-albbc)] levofloxacin [From Levaquin] AdvReac Muscle Ache Verified 01/22/19 14:08 TOPICAL ANTIBIOTICS* Allergy Severe Anaphylatic Uncoded 08/17/18 07:15 Shock PMH/Surg Hx/FS Hx/Imm Hx Endocrine/Hematology History: Denies: Hx Diabetes, Hx Thyroid Disease Cardiovascular History: Denies: Hx Hypertension, Hx Pacemaker/ICD Respiratory History: Denies: Hx Asthma, Hx Chronic Obstructive Pulmonary Disease (COPD) GI History: Denies: Hx Ulcer History: Denies: Hx Renal Disease Musculoskeletal History: Reports: Hx Arthritis - all over Sensory History: Reports: Hx Contacts or Glasses - readers Denies: Hx Hearing Aid Opthamlomology History: Reports: Hx Contacts or Glasses - readers Neurological History: Reports: Other Neuro Impairments/Disorders - bells palsy, lyme disease Psychiatric History: Denies: Hx Panic Disorder - Surgical History Surgery Procedure, Year, and Place: , 1993. TUBAL , 1993 Hx Anesthesia Reactions: No Infectious Disease History: No Infectious Disease History: Denies: Hx Hepatitis, Hx Human Immunodeficiency Virus (HIV), History Other Infectious Disease, Traveled Outside the [place] in Last 30 Days - Family History Known Family History: Positive: None, Non-Contributory - Social History Alcohol Use: None Alcohol Amount: 1 Hx Substance Use: No Substance Use Type: Reports: None Hx Tobacco Use: Yes Smoking Status (MU): Former Smoker Type: Cigarettes Amount Used/How Often: pack a day for 30 yrs Length of Time of Smoking/Using Tobacco: 40 years Have You Smoked in the Last Year: Yes Review of Systems Negative: Fever Positive: Other All Other Systems Reviewed And Are Negative: Yes Physical Exam - Summary Physical Exam Summary: VITAL SIGNS: Reviewed. GENERAL: Patient is a well-developed and nourished FEMALE who is lying comfortable in the stretcher. Patient is not in any acute respiratory distress. HEAD AND FACE: No signs of trauma. No ecchymosis, hematomas or skull depressions. No sinus tenderness. EYES: PERRLA, EOMI x 2, No injected conjunctiva, no nystagmus. EARS: Hearing grossly intact. Ear canals and tympanic membranes are within normal limits. MOUTH: Oropharynx within normal limits. NECK: Supple, trachea is midline, no adenopathy, no JVD, no carotid bruit, no c- spine tenderness, neck with full ROM. CHEST: Symmetric, no tenderness at palpation. LUNGS: Clear to auscultation bilaterally. No wheezing or crackles. CVS: Regular rate and rhythm, S1 and S2 present, no murmurs or gallops appreciated. ABDOMEN: Soft, non-tender. No signs of distention. No rebound, no guarding, and no masses palpated. Bowel sounds are normal. EXTREMITIES: Decreased range of motion on right shoulder and right elbow, Tenderness in forearm NEURO: Alert and oriented x 3. No acute neurological deficits. Speech is normal and follows commands. SKIN: Dry and warm. Triage Information Reviewed: Yes Vital Signs On Initial Exam: Initial Vitals Temp Pulse Resp BP Pulse Ox 98.7 F 79 16 137/85 99 01/22/19 14:05 01/22/19 14:05 01/22/19 14:05 01/22/19 14:05 01/22/19 14:05 Vital Signs Reviewed: Yes Procedures - Sedation Patient Received Moderate/Deep Sedation with Procedure: No Diagnostics - Vital Signs Vital Signs Temp Pulse Resp BP Pulse Ox 01/22/19 14:05 98.7 F 79 16 137/85 99 - Laboratory Lab Statement: Any lab studies that have been ordered have been reviewed, and results considered in the medical decision making process. - Radiology Shoulder X-Ray Radiology Interpretation Completed By: Radiologist Summary of Radiographic Findings: Per radiologist,. 1. NO FRACTURE IDENTIFIED. 2. MODERATE ACROMIOCLAVICULAR OSTEOARTHROPATHY. ED physician has reviewed this imaging report. Forearm X-Ray Radiology Interpretation Completed By: Radiologist Summary of Radiographic Findings: Per radiologist,. NO FRACTURE IDENTIFIED. ED physician has reviewed this imaging report. Elbow X-Ray Radiology Interpretation Completed By: Radiologist Summary of Radiographic Findings: Per radiologist,. In the context of a small joint effusion. An occult fracture is possible. If pain. persists, short-term follow up imaging is recommended. ED physician has reviewed this imaging report. Re-Evaluation - Re-Evaluation First Eval Re-Evaluation Time: 16:46 Comment: Pt's discharge was discussed with pt. Course/Dx - Course Assessment/Plan: This patient is a 53 year old F presenting to [facility] with a chief complaint of right shoulder and forearm pain since 1100 today 01/22/19. Symptoms aggravated by nothing. Symptoms alleviated by nothing. Patient reports she went down icy stairs and fell on right shoulder and right forearm pain. Pt reports range of motion in right arm is limited due to pain. Elbow x-ray IMPRESSION: In the context of a small joint effusion. An occult fracture is possible. If pain. persists, short-term follow up imaging is recommended. Forearm x-ray IMPRESSION: NO FRACTURE IDENTIFIED. Shoulder x-ray IMPRESSION: 1. NO FRACTURE IDENTIFIED. 2. MODERATE ACROMIOCLAVICULAR OSTEOARTHROPATHY. Patient does not have any tenderness in the right elbow. However she continued to have decreased range of motion in the shoulder. I believe that she may have a rotator cuff injury. I would place the patient in a shoulder immobilizer since she declined a posterior splint. She did not require any pain medications. She will follow-up with orthopedics. She is hemodynamically stable alert and oriented 3. - Diagnoses Differential Diagnosis/HQI/PQRI: Positive: Bursitis, Contusion, Fracture (Closed ), Laceration, Strain, Sprain Provider Diagnoses: Rotator cuff injury, Elbow pain Discharge ED - Sign-Out/Discharge Documenting (check all that apply): Patient Departure - discharge - Discharge Plan Condition: Stable Disposition: HOME Patient Education Materials: Shoulder Pain (ED) Referrals: Birgit Hurley NP [Primary Care Provider] - 3 Days Jason Langston MD [Medical Doctor] - 3 Days - Billing Disposition and Condition Condition: STABLE Disposition: Home - Attestation Statements Document Initiated by Scribe: Yes Documenting Scribe: Lashae Jurado Provider For Whom Marianibbrandon is Documenting (Include Credential): Dr. Manpreet Wynn MD Scribe Attestation: Lashae Abbasi scribed for Dr. Manpreet Wynn MD on 01/23/19 at 1858. Scribe Documentation Reviewed: Yes Provider Attestation: The documentation as recorded by the Lashae chris accurately reflects the service I personally performed and the decisions made by me, Dr. Manpreet Wynn MD Status of Scribe Document: Viewed
[2019-01-22 17:14] VITALS: BP 136/80
== END 2019-01-22 17:11 | disposition home or self-care (01) ==
LOC: ED 14:03
DX: S46.001A Unspecified injury of muscle(s) and tendon(s) of the rotator cuff of right shoulder, initial encounter (principal); M25.521 Pain in right elbow; W00.1XXA Fall from stairs and steps due to ice and snow, initial encounter; Y92.9 Unspecified place or not applicable; Z88.1 Allergy status to other antibiotic agents; Z88.8 Allergy status to other drugs, medicaments and biological substances; Z98.51 Tubal ligation status; Z87.891 Personal history of nicotine dependence
CPT/HCPCS: 99282

== ENCOUNTER 2019-03-23 07:39 | Day surgery (SDC) | payer BC ==
[~2019-03-23 07:39] MED LIST changes: -Sodium Citrate/Citric Acid* 15 ML UDC PO ONE
[2019-03-23] MEDS ORDERED: ceFAZolin 2 GM PREMIX in ORs 2 GM/50 ML BAG ONE (07:53)
[2019-03-23] MEDS ORDERED: Buffered Lidocaine 1% SYRIN* 1 ML/SYRINGE INTRADERM ONE (07:54)
[2019-03-23] MEDS ORDERED: fentaNYL* 50 MCG/ML 2 ML VIAL (100 MCG VIAL) ONE ×2 (08:04→11:54)
[2019-03-23] MEDS ORDERED: Midazolam* 1 MG/ML 2 ML VIAL (2 MG) ONE ×2 (08:05→10:23)
[2019-03-23] MEDS ORDERED: Bupivacaine 0.25% EPI 200,000* 30 ML SDV ONE (09:38)
[2019-03-23] MEDS ORDERED: EPINEPHRINE 1 MG/ML 1 ML VIAL ONE (09:38)
[2019-03-23] MEDS ORDERED: Bupivacaine 0.5% SDV PF* 30ML VIAL ONE (09:41)
[2019-03-23] MEDS ORDERED: Propofol* 10 MG/ML 20 ML BTL ONE (10:24)
[2019-03-23] MEDS ORDERED: Ondansetron INJ* 2 MG/ML VIAL ONE (10:24)
[2019-03-23] MEDS ORDERED: Dexamethasone IV* 4 MG/ML 1 ML (4 MG) ONE (10:24)
[2019-03-23] MEDS ORDERED: Naloxone* 0.4 MG/ML 1 ML VIAL IV PRN (12:26)
[2019-03-23] MEDS ORDERED: HYDROmorphone INJ1* 1 MG/ML SYRINGE IV PRN (12:26)
[2019-03-23] MEDS ORDERED: Ketorolac INJ* 30 MG/ML 1 ML VIAL IV PRN (12:26)
[2019-03-23] MEDS ORDERED: Ketorolac INJ* 30 MG/ML 1 ML VIAL ONE (12:40)
[2019-03-23 13:52] VITALS: BP 118/91
--- NOTE | 2019-03-24 01:32 | OP ---
DATE OF OPERATION: 03/23/19 - [facility] DATE OF : 65 SURGEON: Patric Mccann MD TRAINING DEVELOPMENT DIRECTOR: RICK Barbosa. A physician contact lens assistant was required for the length of the procedure for assistance with patient positioning, retraction, instrumentation, and closure. ANESTHESIOLOGIST: Dr. Vikash Guajardo. ANESTHESIA: General anesthesia, regional interscalene block anesthesia. PRE-OP DIAGNOSES: 1. Right shoulder rotator cuff tendon tear, supraspinatus, likely full thickness. 2. Right shoulder subacromial impingement and bursitis. 3. Right shoulder acromioclavicular joint osteoarthritis. 4. Right shoulder possible biceps tendinosis or superior labrum tear. POST-OP DIAGNOSES: 1. Right shoulder rotator cuff tendon tear, supraspinatus, full thickness. 2. Right shoulder subacromial impingement and bursitis. 3. Right shoulder acromioclavicular joint osteoarthritis. 4. Right shoulder biceps tendinosis and superior labrum tear. OPERATIVE PROCEDURE: 1. Right shoulder arthroscopic rotator cuff tendon repair, double row, supraspinatus. 2. Right shoulder arthroscopic subacromial decompression. 3. Right shoulder arthroscopic distal clavicle resection. 4. Right shoulder open proximal biceps tenodesis, subpectoral. INDICATIONS: The patient is a 53-year-old woman, right-hand dominant, who injured herself on 01/22/19 falling down some stairs. She had significant weakness on exam when I first met her. We ordered an MRI which showed a likely full-thickness rotator cuff tendon tear. We discussed nonoperative and operative treatment. The patient wanted to proceed forward with surgery. This was reasonable given the apparent full-thickness tear on MRI. Discussed risks and potential complications. ANTIBIOTICS: Ancef 2 g IV. IV FLUIDS: See Anesthesia note. [id number] TIME: 93 minutes. SPECIMEN: None. IMPLANTS: Arthrex Corkscrew 5.5-mm suture anchor, double loaded with suture tape. Arthrex SwiveLock suture anchor 5.5 mm, including the use of one FiberWire #2 suture from that. Arthrex proximal biceps tenodesis button x1. COMPLICATIONS: None. ESTIMATED BLOOD LOSS: Minimal. DESCRIPTION OF PROCEDURE: In the preoperative holding, the patient signed written consent. Operative extremity was marked in the preoperative holding. The patient underwent a regional interscalene nerve block by Anesthesia. The patient was brought back to the operating room, placed supine on operating room table. Sedated and intubated. The patient was converted to a lateral decubitus position. Ott bag hardened. Axillary roll. All bony prominences padded. 15 pounds of traction, longitudinal, right shoulder with the appropriate amount of forward flexion and abduction. The right shoulder was prepped and draped. Surgical time-out performed. Spinal needle entered into glenohumeral joint from posterior. 30 cc of normal saline infused. Posterior glenohumeral joint portal was established per standard technique. Commenced diagnostic arthroscopy. There was immediately visible a high-grade tear of at least 10 mm of width of the supraspinatus. No significant articular cartilage damage. Anterior glenohumeral joint portal was established under direct visualization. I probed the biceps. There was some hyperemia along it. I probed the superior labrum. There was a superior labral tear and it was unstable lifting up more than 5 mm. I brought a scissors, arthroscopic through the anterior portal and released the biceps at its origin. I used an arthroscopic shaver to debride some of the frayed tissue about the supraspinatus undersurface and it was clear that there was either a full- thickness tear or a high-grade partial thickness under-sided tear. I placed a spinal needle from outside the shoulder to noemi the area of the tear. I moved to the subacromial space. Established posterior and anterior portals. I then under direct visualization, I created posterolateral and lateral portals. There was a full-thickness supraspinatus rotator cuff tendon tear. There was no significant retraction. Retraction was minimal, but I actually placed a retraction stitch, #2 FiberWire , into the rotator cuff and pulled that out my anterior cannula to allow good visualization of the bare footprint. I skeletonized the undersurface of the acromion with a cautery device and then smoothed out the curve on the anterior aspect to the acromion with an arthroscopic bur. I then prepared the rotator cuff footprint. I debrided the soft tissue on it with a cautery device and then I prepared the bone with an arthroscopic bur. There was a nice area for healing to occur. Through a superolateral poke hole, we placed a suture anchor in the medial aspect of the footprint. That was a cork-screw anchor. Using a Scorpion antegrade suture passer, we placed 2 horizontal mattress stitches in the supraspinatus. Both stitches were passed before either was tied. The knots were tied. Suture tape from the medial row was then placed into a lateral row anchor. Anchors were well positioned. To flatten up slightly some tissue between the medial and lateral row anchor, I took a free suture from the lateral row anchor and used a retrograde Lasso suture passer and passed a stitch through that tissue. It pulled through some of the tissue, but we still got a simple stitch tied. Repair was stable to probing and movement of the humerus. Next, I directed my attention to the AC joint. Debrided the synovitic tissue with a cautery device and then removed 8 mm of distal under the clavicle with an arthroscopic bur. I removed fluid and instruments from the subacromial space. Closed the skin incisions with [id number] and 12 stitches using nylon 3-0 suture. I took the arm out of traction and flattened out the patient to a nearly supine position. Longitudinal anteromedial skin incision. Dissected down to bicipital grove. Placed retractors. Removed long-headed biceps. I debrided the bicipital groove appropriately. We placed 3 stitches with a FiberLoop suture in the biceps for correct length tension relationship. I placed a Beath pin. Loaded suture button. Passed and then flipped suture button. Tied a knot. Used a free needle to place another tenodesis knot. Removed excess suture and tendon. Irrigation. Closure of the subcutaneous tissue with buried simple stitches using Vicryl 3-0 suture. Closure of the subcuticular layer with a running stitch using Monocryl 4-0 suture. Mastisol, Steri-Strips. No local anesthesia. 4x4s and Tegaderm. Next, the arthroscopic skin incisions were closed with Xeroform, 4x4s, ABDs, and foam tape. Sling and abduction pillow. Cooling unit. The patient was awakened, extubated, and transferred to the PACU. DISPOSITION: The patient will be in the sling and abduction pillow for 6 weeks. No physical therapy. Percocet as needed for pain control and Keflex x5 days for infection prophylaxis. Follow up in the office in 10 to 14 days postop. [id number]/[facility] #: [id number] [facility]
== END 2019-03-23 14:54 | disposition home or self-care (01) ==
LOC: OR 07:39
PROVIDERS: ATTEND Orthopaedic Surgery
DX: S46.011A Strain of muscle(s) and tendon(s) of the rotator cuff of right shoulder, initial encounter (principal); S43.491A Other sprain of right shoulder joint, initial encounter; W10.9XXA Fall (on) (from) unspecified stairs and steps, initial encounter; Y92.9 Unspecified place or not applicable; M75.41 Impingement syndrome of right shoulder; M75.51 Bursitis of right shoulder; M19.011 Primary osteoarthritis, right shoulder; M75.21 Bicipital tendinitis, right shoulder; G89.18 Other acute postprocedural pain; G51.0 Bell's palsy; M19.90 Unspecified osteoarthritis, unspecified site; Z87.891 Personal history of nicotine dependence
CPT/HCPCS: C1713; C1776; J0690; J1100; J1885; J2250; J2405; J2704; J3010; J3490

== ENCOUNTER 2019-04-24 21:47 | Emergency (ER) | payer BC ==
--- OUTSIDE RECORDS SUMMARY | 2019-04-24 21:57 | XMS REPORT | Continuity of Care Document ---
:1965 External Reference #:[id number] Author Name Iveth Adkins, OFFICE SERVICES SPECIALIST Address [address] [id number] Care Team Providers Name Role Phone Lynnette Bill M.D. - Family Care Team Information Top Cleaner [phone] Medicine Mehdi Ramirez MD - Family Medicine Care Team Information Top Cleaner [phone] Problems Active Problems Provider Date Anxiety state Mehdi Ramirez M.D. Onset: 10/01/2010 Malaise and fatigue Maximilian Lott M.D. Onset: 01/07/2016 Chest pain Maximilian Lott M.D. Onset: 01/07/2016 Social History Type Date Description Comments Sex Unknown Tobacco Use Start: 02/16/79 End: Former Cigarette Smoker 02/17 1 PPD 02/16/17 Pack Daily ETOH Use Consumes 3 beers per day Tobacco Use Start: Unknown End: Patient is a former smoker stopped in February,, using Chantix Allergies, Adverse Reactions, Alerts Active Allergies Reaction Severity Comments Date Neosporin 11/27/1998 Tobramycin 12/29/2006 Gentamicin Eye Drops 12/30/2006 Medications Active Medications SIG Qnty Indications Ordering Date Provider Methylphenidate HCL 1 by mouth once 60tabs Mehdi Morrison 02/07/2019 10mg Tablets a day or two Frantz Ramirez times a day as directed Hydrochlorothiazide 1 by mouth 30tabs R60.0 Birgit Hurley, 06/10/2018 25mg Tablets every day OFFICE SERVICES SPECIALIST Percocet 1 tab every 12 60tabs M54.5 Birgit Hurley, 09/30/2017 5-325mg Tablets hours as needed OFFICE SERVICES SPECIALIST for pain M54.2 Cyclobenzaprine HCL 1 by mouth up to 60tabs M54.5 Iveth Jed, 02/25 10mg Tablets three times a OFFICE SERVICES SPECIALIST day as needed Valacyclovir HCL take one tablet 90tabs B00.9 Birgit Hurley, OFFICE SERVICES SPECIALIST 12/03/2016 500mg Tablets by mouth one time daily Xanax 1\\2 - 1 by mouth 60tabs F41.9 Birgit Hurley, OFFICE SERVICES SPECIALIST 11/07/2013 1mg Tablets twice a day as needed G47.09 Amoxicillin 1 by mouth two times a day x Unknown 500mg Capsules 10d History Medications Amphetamine-Dextroamphet ER 1 by mouth 30caps R53.83 Mehdi Morrison 12/23/2018 - 10mg Caps ER daily in in Frantz Ramirez 02/07/2019 24HR the morning after a hearty breakfast Immunizations CPT Code Status Date Vaccine Lot # [id number] Given 10/29/2018 Influenza Vac, Quadriv[place] [id number] Given 11/14/2016 Influenza Vac, Quadrivalent, Slit Virus, Im Vital Signs Date Vital Result Comment 03/04/2019 12:53pm BP Systolic 120 mmHg BP Diastolic 80 mmHg Heart Rate 72 /min Body Temperature 98.6 F Respiratory Rate 16 /min Height 66 inches 5'6" Weight 170.00 lb BMI (Body Mass Index) 27.4 kg/m2 02/03/2019 7:20pm BP Systolic 128 mmHg BP Diastolic 72 mmHg Heart Rate 72 /min Respiratory Rate 16 /min Height 66 inches 5'6" Weight 165.00 lb BMI (Body Mass Index) 26.6 kg/m2 Results Test Acquired Date Facility Test Result H/L Range Note Laboratory test 02/27/2019 [facility] Rapid Strep Negative Negative 1 finding Molecular [facility] Select 02/04/2019 [facility] Summary Report FINAL 2 13 (MW) [address] [facility] (Summary) [place] [address] [phone] - PDF . Laboratory test 02/04/2019 [facility] PDF [id number] SEE IMAGE finding [address] [place] [address] (911)- - 1 Construction Analyst: [id number] Suboptimal collection technique may reduce sensitivity of test. Refer to the [facility] Test Catalog for collection information: [email or web address] As with all diagnostic procedures, the laboratory results obtained should be used in conjunction with other clinical information available to the physician, including confirmation by another method, as applicable. 2 TOX[facility] SELECT 13 (MW) Test Result Flag Units Drug Present and Declared for Prescription Verification Amphetamine 204 EXPECTED ng/mg creat Amphetamine is available as a schedule II prescription drug. Drug Absent but Declared for Prescription Verification Alprazolam Not Detected UNEXPECTED ng/mg creat Oxycodone Not Detected UNEXPECTED ng/mg creat Test Result Flag Units Ref Range Creatinine 158 mg/dL >=20 Declared Medications: The flagging and interpretation on this report are based on the following declared medications. Unexpected results may arise from inaccuracies in the declared medications. Note: The testing scope of this panel includes these medications: Alprazolam (Xanax) Amphetamine Amphetamine (Dextroamphetamine) Oxycodone (Percocet) Note: The testing scope of this panel does not include following reported medications: Acetaminophen (Percocet) Cyclobenzaprine Hydrochlorothiazide Valacyclovir For clinical consultation, please call . Procedures Date Code Description Status 02/20/2018 [id number] Mammogram Completed 07/24/2017 [id number] Mammogram Completed 07/07/2016 [id number] Mammogram Completed 01/27/2014 [id number] Mammogram Completed 07/09/2012 [id number] Mammogram Completed 05/22/2011 [id number] Mammogram Completed 10/29/2009 [id number] Mammogram Completed 09/03/2007 [id number] Mammogram Completed Medical Devices Description No Information Available Encounters Type Date Location Provider Dx Diagnosis Office Visit 02/03/2019 7:10p Main Office Mehdi Ramirez M.D. R53.83 Other fatigue G89.4 Chronic pain syndrome Office Visit 12/23/2018 1:45p [facility] Office Birgit Hurley R53.83 Other fatigue TOMMIE M54.5 Low back pain Assessments Date Code Description Provider 03/04/2019 J06.9 Acute upper respiratory infection, TOMMIE Hendrix unspecified 02/03/2019 R53.83 Other fatigue Mehdi Ramirez M.D. 02/03/2019 G89.4 Chronic pain syndrome Mehdi Ramirez M.D. 12/23/2018 R53.83 Other fatigue TOMMIE Joseph 12/23/2018 M54.5 Low back pain TOMMIE Joseph Plan of Treatment Future Appointment(s):03/16/2019 11:20 am - Mehdi Ramirez M.D. at [facility] Atjmzd5803/04/2019 - Iveth Adkins, FNPJ06.9 Acute upper respiratory infection , unspecifiedComments:resolvedAllComments:You're due for a pap smear and a colonoscopy this year As always, we strongly encourage a healthydiet and making physical activity a part of your every day life. If you have questions about how or where to start, please contact the office. Functional Status Description No Information Available Mental Status Description No Information Available Referrals Description No Information Available
--- NOTE | 2019-04-24 23:31 | ED ---
Upper Extremity Pain - HPI Summary HPI Summary: 53 year old female presents with swelling to her right antecubital area. States that she has surgical rotator cuff surgery a couple weeks with dr siegel that has been improving. She noticed more pain and this nodular structure in her right antecubital area today. does have a nephew with a blood clot. She denies any family history of blood clots. She is nonsmoker. She denies any numbness or tingling. States she has pain over the shoulder from the surgery. - History of Current Complaint Chief Complaint: EDExtremityUpper Stated Complaint: ARM PAIN Time Seen by Provider: 04/24/19 22:25 - Allergies/Home Medications Allergies/Adverse Reactions: Allergies Allergy/AdvReac Type Severity Reaction Status Date / Time bacitracin Allergy Anaphylatic Verified 04/24/19 23:06 [From Neosporin Shock ([id number])] neomycin Allergy Anaphylatic Verified 04/24/19 23:06 [From Neosporin Shock ([id number])] polymyxin B Allergy Anaphylatic Verified 04/24/19 23:06 [From Neosporin Shock ([id number])] levofloxacin [From Levaquin] AdvReac Muscle Ache Verified 04/24/19 23:06 TOPICAL ANTIBIOTICS* Allergy Severe Anaphylatic Uncoded 04/24/19 23:06 Shock SHINGLES VACCINE Allergy See Comment Uncoded 04/24/19 23:06 Home Medications: Home Medications ALPRAZolam TAB* [Xanax TAB*] 1 tab PO TID PRN 05/25/14 [History Confirmed ] Cyclobenzaprine TAB* [Flexeril 10 MG TAB*] 1 tab PO BID PRN 05/25/14 [History Confirmed 04/24/19] oxyCODONE/Acetamin 5/325 MG* [Percocet 5/325 TAB*] 1 tab PO Q8H PRN 05/25/14 [ History Confirmed 04/24/19] Naproxen Sodium [Aleve] 440 mg PO BID PRN 04/06/18 [History Confirmed 04/24/19] Valacyclovir HCl [Valacyclovir] 500 mg PO QAM 04/06/18 [History Confirmed ] Hydrochlorothiazide TAB* [Hydrodiuril TAB*] 25 mg PO QAM 12/14/18 [History Confirmed 04/24/19] PMH/Surg Hx/FS Hx/Imm Hx Endocrine/Hematology History: Denies: Hx Bone Marrow Disease, Hx Diabetes, Hx Sickle Cell Disease, Hx Thyroid Disease, Hx Anemia Cardiovascular History: Denies: Hx Angina, Hx Cardiomegaly, Hx Congestive Heart Failure, Hx Coronary Artery Disease, Hx Hypertension, Hx Pacemaker/ICD, Hx Peripheral Vascular Disease, Hx Rheumatic Fever, Hx Valvular Heart Disease, Other Cardiovascular Problems/Disorders Respiratory History: Denies: Hx Asthma, Hx Chronic Obstructive Pulmonary Disease (COPD), Hx Pulmonary Edema, Hx Pulmonary Embolism, Hx Sleep Apnea, Other Respiratory Problems/Disorders GI History: Denies: Hx Cirrhosis, Hx Crohn's Disease, Hx Gastroesophageal Reflux Disease , Hx Hiatal Hernia, Hx Irritable Bowel, Hx Jaundice, Hx Ulcer, Other GI Disorders History: Denies: Hx Kidney Infection, Hx Kidney Stones, Hx Renal Disease, Other Problems/Disorders Musculoskeletal History: Reports: Hx Arthritis - GENERALIZED Denies: Hx Bursitis, Hx Tendonitis, Other Musculoskeletal History Sensory History: Reports: Hx Contacts or Glasses - READERS Denies: Hx Cataracts, Hx Glaucoma, Hx Hearing Aid Opthamlomology History: Reports: Hx Contacts or Glasses - READERS Denies: Hx Cataracts, Hx Glaucoma Neurological History: Reports: Other Neuro Impairments/Disorders - bells palsy, lyme disease Psychiatric History: Reports: Hx Anxiety - ON MEDIC. Denies: Hx Panic Disorder - Cancer History Hx Chemotherapy: No - Surgical History Surgery Procedure, Year, and Place: , 1993. TUBAL , 1993. LEFT WRIST/ THUMB SURG[place] [place]est[place] Reactions: No Infectious Disease History: No Infectious Disease History: Denies: Hx Hepatitis, Hx Human Immunodeficiency Virus (HIV), History Other Infectious Disease, Traveled Outside the [place] in Last 30 Days - Family History Known Family History: Positive: None, Non-Contributory - Social History Alcohol Use: Occasionally Alcohol Amount: 1 Hx Substance Use: No Substance Use Type: Reports: None Hx Tobacco Use: Yes Smoking Status (MU): Former Smoker Type: Cigarettes Amount Used/How Often: 1 PPD X 30 YRS Length of Time of Smoking/Using Tobacco: 40 years Have You Smoked in the Last Year: Yes Review of Systems Negative: Fever Negative: Chest Pain Negative: Shortness Of Breath Positive: Myalgia - left elbow All Other Systems Reviewed And Are Negative: Yes Physical Exam Triage Information Reviewed: Yes Vital Signs On Initial Exam: Initial Vitals Temp Pulse Resp BP Pulse Ox 99.5 F 105 15 146/96 98 04/24/19 21:49 04/24/19 21:49 04/24/19 21:49 04/24/19 21:49 04/24/19 21:49 Vital Signs Reviewed: Yes Appearance: Positive: Well-Appearing Skin: Positive: Warm, Dry Head/Face: Positive: Normal Head/Face Inspection Eyes: Positive: Normal, Conjunctiva Clear ENT: Positive: Pharynx normal Respiratory/Lung Sounds: Positive: Clear to Auscultation, Breath Sounds Present Cardiovascular: Positive: Normal, RRR Musculoskeletal: Positive: Strength/ROM Intact - right elbow, Other - tenderness right antecubital area with nodular type structure, no erythema Neurological: Positive: Normal Psychiatric: Positive: Normal Procedures - Sedation Patient Received Moderate/Deep Sedation with Procedure: No Diagnostics - Vital Signs Vital Signs Temp Pulse Resp BP Pulse Ox 04/24/19 21:49 99.5 F 105 15 146/96 98 - Laboratory Lab Statement: Any lab studies that have been ordered have been reviewed, and results considered in the medical decision making process. - Ultrasound No standard instances Ultrasound Interpretation Completed By: Radiologist Summary of Ultrasound Findings: IMPRESSION: Scanning in the area of interest demonstrates no specific abnormality. Course/Dx - Course Course Of Treatment: 53 year old female presents with swelling to her right antecubital area. States that she has surgical rotator cuff surgery a couple weeks with dr siegel that has been improving. She noticed more pain and this nodular structure in her right antecubital area today. does have a nephew with a blood clot. She denies any family history of blood clots. She is nonsmoker. She denies any numbness or tingling. States she has pain over the shoulder from the surgery. On exam does have a tender area that feels almost like a tendon over the right antecubital area. Got ultrasound of the area and showed no acute findings. Discussed likely a tendon that is inflamed. Told to continue to ice and elevate. Told to follow-up with ortho as scheduled. Patient understands agrees the plan - Diagnoses Differential Diagnosis/HQI/PQRI: Positive: Hematoma, Other - dvt, phlebitis Provider Diagnoses: Right arm pain Discharge ED - Sign-Out/Discharge Documenting (check all that apply): Patient Departure - Discharge Plan Condition: Good Disposition: HOME Patient Education Materials: R.I.C.E. Treatment (ED) Referrals: Mehdi Ramirez MD [Primary Care Provider] - Additional Instructions: follow up with ortho as scheduled apply ice Return to ED if develop any new or worsening symptoms - Billing Disposition and Condition Condition: GOOD Disposition: Home
[2019-04-25 00:24] VITALS: BP 134/89
== END 2019-04-25 00:22 | disposition home or self-care (01) ==
LOC: ED 21:47
DX: M25.521 Pain in right elbow (principal); F41.9 Anxiety disorder, unspecified; Z88.1 Allergy status to other antibiotic agents; Z88.3 Allergy status to other anti-infective agents; Z88.7 Allergy status to serum and vaccine; Z87.891 Personal history of nicotine dependence
CPT/HCPCS: 99282